=== PATIENT | female | born 2000 | race African-American/Black ===

== ENCOUNTER 2023-07-09 22:54 | Emergency (ER) | payer SELFPAY ==
[~2023-07-09] VITALS: Ht 162.6 cm; Wt 54.0 kg
[2023-07-09 22:59] VITALS: BP 140/70; PULSE 80; RESP 16; TEMP 97.9; O2SAT 98
[2023-07-10] MEDS ORDERED: TOPUD MT (01:50)
== END 2023-07-10 02:22 | disposition home or self-care (01) ==
LOC: ER 22:54
DX: S72.391A Other fracture of shaft of right femur, initial encounter for closed fracture (principal); F31.9 Bipolar disorder, unspecified; F20.9 Schizophrenia, unspecified; Z98.890 Other specified postprocedural states; W18.39XA Other fall on same level, initial encounter; Y93.89 Activity, other specified; Y92.89 Other specified places as the place of occurrence of the external cause; Y99.8 Other external cause status
CPT/HCPCS: 73552; 73560; 81025; 99284